=== PATIENT | male | born 1950 | race Caucasian/White ===

== ENCOUNTER → 2016-09-12 | Outpatient (CLI) | payer OTHER ==
[2016-09-12 09:38] LABS: HEMOGLOBIN 12.9 gm/dl (14.0-17.5); RED BLOOD COUNT 4.14 M/UL (4.20-5.50); WHITE BLOOD COUNT 8.6 K/UL (4.5-11.0)
== END ==
LOC: LAB 08:10
PROVIDERS: Nurse Practitioner
DX: D64.9 Anemia, unspecified (principal); R31.9 Hematuria, unspecified
CPT/HCPCS: 36415; 85025

== ENCOUNTER → 2016-10-31 | Outpatient (CLI) | payer OTHER ==
[2016-10-31 09:24] LABS: HEMOGLOBIN 12.9 gm/dl (14.0-17.5); RED BLOOD COUNT 4.1 M/UL (4.20-5.50); WHITE BLOOD COUNT 7.5 K/UL (4.5-11.0)
== END ==
LOC: LAB 08:12
PROVIDERS: Nurse Practitioner
DX: D64.9 Anemia, unspecified (principal)
CPT/HCPCS: 36415; 85025

== ENCOUNTER 2020-07-05 13:43 | Emergency (ER) | payer OTHER, SELFPAY ==
[~2020-07-05 13:43] MED LIST: ACCUPRIL5 MG PO; AUGMENTIN 875-1 EACH PO; ECOTRIN81 MG PO; LASIX TAB 20 MG20 MG PO; LASIX20 MG PO; PLAVIX 75 MG TA75 MG PO; PRAVACHOL80 MG PO; PROTONIX40 MG PO; REMERON15 MG PO; ROPINIROLE HCL0.5 MG PO; VITAMIN D31000 UNI1 PO; VOLTAREN100 GM TP; ZYRTEC10 MG PO
[2020-07-05 15:25] LABS: HEMOGLOBIN 11.8 gm/dl (14.0-17.5); RED BLOOD COUNT 3.85 M/UL (4.20-5.50)
[2020-07-05 15:42] LABS: BUN/CREATININE RATIO 23 (0-10)
== END 2020-07-05 18:25 | disposition short-term general hospital (02) ==
LOC: ER1 13:43
PROVIDERS: Family Medicine
DX: S06.5X9A Traumatic subdural hemorrhage with loss of consciousness of unspecified duration, initial encounter (principal); I10 Essential (primary) hypertension; E11.9 Type 2 diabetes mellitus without complications; F17.200 Nicotine dependence, unspecified, uncomplicated; Z79.02 Long term (current) use of antithrombotics/antiplatelets; Z88.8 Allergy status to other drugs, medicaments and biological substances; Z79.82 Long term (current) use of aspirin; Z86.73 Personal history of transient ischemic attack (TIA), and cerebral infarction without residual deficits; Z99.81 Dependence on supplemental oxygen; W05.0XXA Fall from non-moving wheelchair, initial encounter; Z20.828 Contact with and (suspected) exposure to other viral communicable diseases
CPT/HCPCS: 70450; 71045; 80053; 82550; 82553; 83874; 84484; 85025; 99285; U0002

== ENCOUNTER 2020-08-03 00:42 | Emergency (ER) | payer OTHER, SELFPAY ==
[2020-08-03 01:51] LABS: HEMOGLOBIN 13.5 gm/dl (14.0-17.5); RED BLOOD COUNT 4.44 M/UL (4.20-5.50); WHITE BLOOD COUNT 17.3 K/UL (4.5-11.0)
[2020-08-03 02:19] LABS: BUN/CREATININE RATIO 20 (0-10)
== END 2020-08-03 09:40 | disposition short-term general hospital (02) ==
LOC: ER1 00:42
PROVIDERS: Family Medicine
DX: I62.01 Nontraumatic acute subdural hemorrhage (principal); I62.03 Nontraumatic chronic subdural hemorrhage; N30.90 Cystitis, unspecified without hematuria; E87.2 Acidosis; E11.9 Type 2 diabetes mellitus without complications; I11.0 Hypertensive heart disease with heart failure; I50.30 Unspecified diastolic (congestive) heart failure; Z20.822 Contact with and (suspected) exposure to COVID-19
CPT/HCPCS: 70450; 71045; 80053; 81001; 82550; 82553; 83605; 83874; 84484; 85025; 86140; 87040; 87077; 87086; 87186; 93005; 96365; 99285; J0696; U0002

== ENCOUNTER → 2020-11-12 | Outpatient (CLI) | payer OTHER ==
[2020-11-12 14:29] LABS: HEMOGLOBIN 13.2 gm/dl (14.0-17.5); RED BLOOD COUNT 4.53 M/UL (4.20-5.50); WHITE BLOOD COUNT 7.3 K/UL (4.5-11.0)
[2020-11-12 14:56] LABS: BUN/CREATININE RATIO 20 (0-10)
[2020-11-13 08:14] LABS: THYROXINE (T4) 4.5 ug/dL (4.5-12.0)
[2020-11-13 09:14] LABS: CREATININE, URINE 189.1 mg/dL (Not Estab.)
== END ==
LOC: LAB 13:37
PROVIDERS: Nurse Practitioner
DX: E11.9 Type 2 diabetes mellitus without complications (principal); I10 Essential (primary) hypertension; E78.5 Hyperlipidemia, unspecified; Z86.73 Personal history of transient ischemic attack (TIA), and cerebral infarction without residual deficits
CPT/HCPCS: 80053; 80061; 82043; 82570; 84436; 84443; 84480; 85025

== ENCOUNTER → 2020-12-29 | Outpatient (CLI) | payer OTHER | LOC: MRI 12:18 | DX: E23.7 Disorder of pituitary gland, unspecified (principal) | CPT/HCPCS: 36415; 70553; 82565; A9577 ==

== ENCOUNTER → 2021-01-17 | Outpatient (CLI) | payer OTHER ==
[~2021-01-17] MED LIST changes: +BACTRIM DS TAB1 EACH PO
[2021-01-17 15:36] LABS: RED BLOOD COUNT 4.27 M/UL (4.20-5.50); WHITE BLOOD COUNT 7.5 K/UL (4.5-11.0)
[2021-01-17 17:12] LABS: BUN/CREATININE RATIO 17 (0-10)
[2021-01-18 05:08] LABS: THYROXINE (T4) 4.6 ug/dL (4.5-12.0); VITAMIN D, 25-HYDROXY 31.1 ng/mL (30.0-100.0)
== END ==
LOC: LAB 13:54
PROVIDERS: Nurse Practitioner
DX: E11.9 Type 2 diabetes mellitus without complications (principal); J44.9 Chronic obstructive pulmonary disease, unspecified; I67.9 Cerebrovascular disease, unspecified; E78.5 Hyperlipidemia, unspecified; P52.9 Intracranial (nontraumatic) hemorrhage of newborn, unspecified; G46.8 Other vascular syndromes of brain in cerebrovascular diseases; K21.9 Gastro-esophageal reflux disease without esophagitis; R53.83 Other fatigue; E55.9 Vitamin D deficiency, unspecified
CPT/HCPCS: 36415; 80053; 80061; 81001; 83036; 84436; 84443; 84480; 85025

== ENCOUNTER → 2021-03-21 | Outpatient (CLI) | payer OTHER ==
[~2021-03-21] MED LIST changes: -BACTRIM DS TAB1 EACH PO
[2021-03-21 17:45] LABS: HEMOGLOBIN 12.8 gm/dl (14.0-17.5); RED BLOOD COUNT 4.37 M/UL (4.20-5.50); WHITE BLOOD COUNT 6.9 K/UL (4.5-11.0)
[2021-03-21 18:15] LABS: BUN/CREATININE RATIO 15 (0-10)
== END ==
LOC: LAB 15:37
PROVIDERS: Physical Medicine & Rehabilitation
DX: E11.9 Type 2 diabetes mellitus without complications (principal); G25.81 Restless legs syndrome; E78.5 Hyperlipidemia, unspecified; R53.83 Other fatigue
CPT/HCPCS: 36415; 80053; 80061; 83036; 84436; 84443; 84480; 85025; G0103

== ENCOUNTER 2021-03-31 17:30 | Emergency (ER) | payer OTHER ==
[2021-03-31] MEDS ORDERED: BACTRIM DS TAB1 EACH PO (18:22)
== END 2021-03-31 18:46 | disposition home or self-care (01) ==
LOC: ER1 17:30
DX: L03.312 Cellulitis of back [any part except buttock and flank] (principal); E11.9 Type 2 diabetes mellitus without complications
CPT/HCPCS: 99283

== ENCOUNTER → 2021-04-06 | Outpatient (CLI) | payer OTHER ==
[~2021-04-06] MED LIST changes: +BACTRIM DS TAB1 EACH PO
== END ==
LOC: RAD 08:30
DX: R13.10 Dysphagia, unspecified (principal); R09.89 Other specified symptoms and signs involving the circulatory and respiratory systems
CPT/HCPCS: 74230; 92611-GN

== ENCOUNTER → 2021-07-29 | Outpatient (CLI) | payer OTHER ==
[2021-07-29 14:24] LABS: HEMOGLOBIN 11.1 gm/dl (14.0-17.5); RED BLOOD COUNT 3.74 M/UL (4.20-5.50); WHITE BLOOD COUNT 6.5 K/UL (4.5-11.0)
[2021-07-30 07:10] LABS: ESTIM. AVG GLU (EAG) 160 mg/dL (.); HEMOGLOBIN A1C 7.2 % (4.8-5.6)
[2021-07-30 08:13] LABS: A/G RATIO 0.9 (1.2-2.2); ALKALINE PHOSPHATASE, S 101 IU/L (44-121); ALT (SGPT) 52 IU/L (0-44); AST (SGOT) 58 IU/L (0-40); BILIRUBIN, TOTAL 0.3 mg/dL (0.0-1.2); BUN 13 mg/dL (8-27); BUN/CREATININE RATIO 15 (10-24); CALCIUM, SERUM 8.8 mg/dL (8.6-10.2); CARBON DIOXIDE, TOTAL 28 mmol/L (20-29); CHLORIDE, SERUM 96 mmol/L (96-106); CHOLESTEROL, TOTAL 148 mg/dL (100-199); CREATININE, SERUM 0.84 mg/dL (0.76-1.27); EGFR IF AFRICN AM 103 (>59); EGFR IF NONAFRICN AM 89 (>59); GLOBULIN, TOTAL 4.3 g/dL (1.5-4.5); GLUCOSE, SERUM 133 mg/dL (65-99); HDL CHOLESTEROL 27 mg/dL (>39); LDL CHOLESTEROL CALC 77 mg/dL (0-99); LDL/HDL RATIO 2.9 ratio (0.0-3.6); POTASSIUM, SERUM 4.5 mmol/L (3.5-5.2); SODIUM, SERUM 133 mmol/L (134-144); T. CHOL/HDL RATIO 5.5 ratio (0.0-5.0); TRIGLYCERIDES 268 mg/dL (0-149); VITAMIN D, 25-HYDROXY 36.4 ng/mL (30.0-100.0)
[2021-07-30 09:15] LABS: THYROXINE (T4) 4.6 ug/dL (4.5-12.0); TRIIODOTHYRONINE (T3) 83 ng/dL (71-180)
== END ==
LOC: LAB 14:00
PROVIDERS: Nurse Practitioner
DX: J44.9 Chronic obstructive pulmonary disease, unspecified (principal); E11.9 Type 2 diabetes mellitus without complications; E78.5 Hyperlipidemia, unspecified; I67.9 Cerebrovascular disease, unspecified; E55.9 Vitamin D deficiency, unspecified
CPT/HCPCS: 36415; 80053; 80061; 81001; 83036; 84436; 84443; 84480; 85025

== ENCOUNTER 2021-09-28 19:51 | Emergency (ER) | payer OTHER ==
[2021-09-28 20:45] LABS: HEMOGLOBIN 10.6 gm/dl (14.0-17.5); RED BLOOD COUNT 3.74 M/UL (4.20-5.50)
== END 2021-09-28 21:50 | disposition home or self-care (01) ==
LOC: ER1 19:51
PROVIDERS: Physician Assistant
DX: S00.512A Abrasion of oral cavity, initial encounter (principal); I51.9 Heart disease, unspecified; I25.2 Old myocardial infarction; E11.9 Type 2 diabetes mellitus without complications; Z79.84 Long term (current) use of oral hypoglycemic drugs; Z86.73 Personal history of transient ischemic attack (TIA), and cerebral infarction without residual deficits; X58.XXXA Exposure to other specified factors, initial encounter
CPT/HCPCS: 85025; 85610; 85730; 99283

== ENCOUNTER → 2021-10-26 | Outpatient (CLI) | payer OTHER ==
[2021-10-26 12:41] LABS: HEMOGLOBIN 8.7 gm/dl (14.0-17.5); RED BLOOD COUNT 3.17 M/UL (4.20-5.50); WHITE BLOOD COUNT 9.4 K/UL (4.5-11.0)
[2021-10-26 13:12] LABS: BUN/CREATININE RATIO 31 (0-10)
[2021-10-27 07:12] LABS: VITAMIN D, 25-HYDROXY 45.4 ng/mL (30.0-100.0)
[2021-10-27 08:16] LABS: THYROXINE (T4) 5.2 ug/dL (4.5-12.0)
== END ==
LOC: LAB 11:01
PROVIDERS: Nurse Practitioner
DX: E11.9 Type 2 diabetes mellitus without complications (principal); J44.9 Chronic obstructive pulmonary disease, unspecified; E78.5 Hyperlipidemia, unspecified; I67.9 Cerebrovascular disease, unspecified; E55.9 Vitamin D deficiency, unspecified
CPT/HCPCS: 36415; 80053; 80061; 81001; 83036; 84436; 84443; 84480; 85025

== ENCOUNTER → 2021-11-01 | Outpatient (CLI) | payer OTHER ==
[2021-11-01 10:42] LABS: HEMOGLOBIN 8.5 gm/dl (14.0-17.5); RED BLOOD COUNT 3.22 M/UL (4.20-5.50); WHITE BLOOD COUNT 9.5 K/UL (4.5-11.0)
== END ==
LOC: LAB 10:18
PROVIDERS: Nurse Practitioner
DX: D64.9 Anemia, unspecified (principal)
CPT/HCPCS: 36415; 82728; 83540; 83550; 85025

== ENCOUNTER → 2021-12-06 | Outpatient (CLI) | payer OTHER | LOC: KOH-I 12:51 | DX: Z87.891 Personal history of nicotine dependence (principal) | CPT/HCPCS: 71271 ==

== ENCOUNTER → 2022-01-10 | Outpatient (CLI) | payer OTHER ==
[2022-01-10 13:01] LABS: HEMOGLOBIN 8.3 gm/dl (14.0-17.5); RED BLOOD COUNT 3.69 M/UL (4.20-5.50); WHITE BLOOD COUNT 8.1 K/UL (4.5-11.0)
== END ==
LOC: LAB 11:23
PROVIDERS: Physician Assistant Surgical
DX: I25.10 Atherosclerotic heart disease of native coronary artery without angina pectoris (principal); I25.2 Old myocardial infarction; D64.9 Anemia, unspecified
CPT/HCPCS: 36415; 82728; 83540; 83550; 85027; 93005

== ENCOUNTER 2022-04-04 22:13 | Emergency (ER) | payer OTHER ==
[2022-04-04 23:52] LABS: HEMOGLOBIN 9.1 gm/dl (14.0-17.5); RED BLOOD COUNT 3.57 M/UL (4.20-5.50); WHITE BLOOD COUNT 7.9 K/UL (4.5-11.0)
[2022-04-05 00:28] LABS: BUN/CREATININE RATIO 15 (0-10)
== END 2022-04-05 03:10 | disposition home or self-care (01) ==
LOC: ER1 22:13
PROVIDERS: Family Medicine
DX: R06.02 Shortness of breath (principal); J44.9 Chronic obstructive pulmonary disease, unspecified; E78.00 Pure hypercholesterolemia, unspecified; E78.5 Hyperlipidemia, unspecified; Z86.73 Personal history of transient ischemic attack (TIA), and cerebral infarction without residual deficits; Z88.8 Allergy status to other drugs, medicaments and biological substances
CPT/HCPCS: 71045; 80053; 82550; 82553; 82803; 84484; 85025; 93005; 99284